=== PATIENT | female | born 1975 | race Caucasian/White ===

== ENCOUNTER 2020-05-08 11:59 | Outpatient (NON) | payer OTHER, SELFPAY ==
[2020-05-08 23:01] LABS: SARS-CoV-2 RNA PCR Negative
== END 2020-05-08 12:00 ==
PROVIDERS: PCP Family Medicine; Visit Provider Family Medicine
DX: Z20.822 Contact with and (suspected) exposure to COVID-19 (principal); R68.83 Chills (without fever)
CPT/HCPCS: C9803; U0003; U0005

== ENCOUNTER 2024-02-20 05:56 | Day surgery (SDC) | payer OTHER, SELFPAY ==
[2024-02-10 13:42] VITALS: BMI 49.8
[2024-02-20 09:45] VITALS: BP 149/73; PULSE 89; RESP 18; TEMP 36.1; O2SAT 96; BMI 51.9
--- NOTE | 2024-02-20 10:01 | P.PNAN_ITS ---
Anes - Initial Pre Proc Eval Procedure: Operation Date: 02/20/24 11:00 Proposed Procedures p Screening Colonoscopy - Celio Montez MD Date/Time: 02/20/24 10:01 Surgeon: Celio Montez MD Pre Op Diagnosis: neoplasm screening Patient Data Age: 48 Gender: F Height: 1.45 m Weight: 108.8 kg Last Vital Signs Temp 97 F L 02/20/24 09:45 Pulse 89 02/20/24 09:45 Resp 18 02/20/24 09:45 BP 149/73 H 02/20/24 09:45 Pulse Ox 96 02/20/24 09:45 O2 Del Method Room Air 02/20/24 09:45 Allergies Allergy/AdvReac Type Severity Reaction Status Date / Time morphine Allergy Unknown Unknown Verified 02/20/24 09:44 Home Medications Medication Instructions Recorded Confirmed Type clonazepam 0.5 mg tablet 0.5 mg PO DAILY PRN anxiety 06/21/22 02/20/24 History magnesium oxide 250 mg PO DAILY 06/27/23 02/20/24 History escitalopram oxalate 20 mg tablet 20 mg PO DAILY #90 tabs 07/07/23 02/20/24 Rx levothyroxine 137 mcg tablet 137 mcg PO DAILY #90 tabs 12/11/23 02/20/24 Rx rosuvastatin 20 mg tablet 20 mg PO DAILY #90 tabs 12/11/23 02/20/24 Rx trazodone 50 mg tablet 50 mg PO QHS #90 tabs 12/11/23 02/20/24 Rx losartan 50 mg tablet 50 mg PO DAILY #90 tabs 01/09/24 02/20/24 Rx Patient hx anesthesia problems: none Family hx anesthesia problems: none Results Review: All pre-operative results and documents have been reviewed as part of the pre- operative evaluation. [facility] Past Medical History Medical History Abnormal fasting glucose Generalized anxiety disorder Hyperlipidemia Hypothyroidism Morbid obesity Surgical History Surgical History History of carpal tunnel surgery 2019-Dr. Valerio History of foot surgery Dr. Hamm [address] Boogie History of mastectomy 2010-Mauryrenate History of oophorectomy Dr. Boogie Family History Family History Other Cerebrovascular accident Diabetes mellitus Family history of malignant neoplasm Hypertension Social History Social History Smoking status: Never smoker Second hand tobacco smoke exposure: No Alcohol intake: current Alcohol use details: 3x per year Substance use: never Substance use type: does not use Do You Feel Safe in your Home?: Yes Lack of Transportation: No Lack of Food: Never True Current Housing: I Have Housing Concerned About Future Housing: No Difficulty Paying Gas/Electric Bills: No Difficulty Paying for Meds: No Currently Unemployed: No Education: Trade/Vocational Certificate Difficulty w/ Childcare or Family Care: No Living arrangements: with family Occupation/Education: occupation Gender identity (if verbalized by the patient): Female Sexual Orientation (if Verbalized by the Patient): Straight or Heterosexual Spiritual care concerns: No Anes - Eval Final PreProcedure Day of Procedure 02/20/24 10:01 Patient weight: morbidly obese Heart: regular rate and rhythm Lungs: clear to auscultation Airway: Mallampati scale class II Neurological: alert and oriented Last oral intake: >/= 8 hours ASA classification: III Emergent: no Anesthetic plan: proceed Anesthesia type and monitoring: general GIVS and standard monitoring Results Review: All pre-operative results and documents have been reviewed as part of the pre- operative evaluation. HTN, hyperlipidemia, MO BMI 51. Informed Consent: The patient's anesthetic plan and its attendant risks and benefits were discussed with the patient/family/POA. Questions were solicited and answers provided to the satisfaction of the patient/family/POA.
[2024-02-20] MEDS: LACTATED RINGERS 1,000 ML 150 ML IV CONT (10:09)
--- NOTE | 2024-02-20 10:09 | PM.IMHP ---
H&P: HPI History of Present Illness Date/Time: 02/20/24 10:09 Chief Complaint: Screening colonoscopy Narrative: This is the patient's second colonoscopy, the 1st 1 was more than 10 years ago.. There are no GI symptoms and there is no family history of colorectal cancer. Review of Systems Review of Systems: All systems reviewed & are unremarkable except as noted in HPI and below PMFSH Past Medical History Medical History Abnormal fasting glucose Generalized anxiety disorder Hyperlipidemia Hypothyroidism Morbid obesity Surgical History Surgical History History of carpal tunnel surgery 2019-Dr. Valerio History of foot surgery Dr. Hamm [address] Boogie History of mastectomy 2010-Stefan History of oophorectomy Dr. Boogie Family History Family History Other Cerebrovascular accident Diabetes mellitus Family history of malignant neoplasm Hypertension Social History Social History Smoking status: Never smoker Second hand tobacco smoke exposure: No Alcohol intake: current Alcohol use details: 3x per year Substance use: never Substance use type: does not use Do You Feel Safe in your Home?: Yes Lack of Transportation: No Lack of Food: Never True Current Housing: I Have Housing Concerned About Future Housing: No Difficulty Paying Gas/Electric Bills: No Difficulty Paying for Meds: No Currently Unemployed: No Education: Trade/Vocational Certificate Difficulty w/ Childcare or Family Care: No Living arrangements: with family Occupation/Education: occupation Gender identity (if verbalized by the patient): Female Sexual Orientation (if Verbalized by the Patient): Straight or Heterosexual Spiritual care concerns: No Meds Home Medications and Allergies Home Medications Medication Instructions Recorded Confirmed Type clonazepam 0.5 mg tablet 0.5 mg PO DAILY PRN anxiety 06/21/22 02/20/24 History magnesium oxide 250 mg PO DAILY 06/27/23 02/20/24 History escitalopram oxalate 20 mg tablet 20 mg PO DAILY #90 tabs 07/07/23 02/20/24 Rx levothyroxine 137 mcg tablet 137 mcg PO DAILY #90 tabs 12/11/23 02/20/24 Rx rosuvastatin 20 mg tablet 20 mg PO DAILY #90 tabs 12/11/23 02/20/24 Rx trazodone 50 mg tablet 50 mg PO QHS #90 tabs 12/11/23 02/20/24 Rx losartan 50 mg tablet 50 mg PO DAILY #90 tabs 01/09/24 02/20/24 Rx Allergies Allergy/AdvReac Type Severity Reaction Status Date / Time morphine Allergy Unknown Unknown Verified 02/20/24 09:44 Vital Signs Vital Signs - 24 hr 02/20/24 09:45 Temperature 97 F L Pulse Rate 89 Respiratory Rate 18 Blood Pressure 149/73 H Pulse Oximetry 96 Oxygen Delivery Room Air Exam Const: General: cooperative and healthy appearing Resp: Effort & Inspection: normal respiratory effort and able to speak in complete sentences Auscultation: clear to auscultation bilaterally Cardio: Rate: regular rate Rhythm: regular rhythm GI: Inspection: normal to inspection GI Palp: No No hepatosplenomegaly present Auscultation: normal bowel sounds Rectal Exam: deferred Skin: General skin exam: normal color Psych: Appearance: grossly normal Mental Status: mental status grossly normal Assessment and Plan Assessment and plan (1) Screening for malignant neoplasm of colon: Code(s): Z12.11 - Encounter for screening for malignant neoplasm of colon Status: Acute Plan The patient is deemed a good candidate for the procedure. Consent signed. Will proceed.
[2024-02-20 10:44] VITALS: BP 123/73; PULSE 96; RESP 23; O2SAT 97
[2024-02-20 10:54] VITALS: BP 114/95; PULSE 90; RESP 21; O2SAT 97
[2024-02-20 11:04] VITALS: BP 114/95; PULSE 84; RESP 16; O2SAT 98
== END 2024-02-20 11:42 | disposition home or self-care (01) ==
PROVIDERS: PCP Family Medicine; Visit Provider Internal Medicine Gastroenterology
PROC: 0DJD8ZZ Inspection of Lower Intestinal Tract, Via Natural or Artificial Opening Endoscopic (ICD-10-PCS; CPT 45378; principal; 2024-02-20 11:00)
DX: Z12.11 Encounter for screening for malignant neoplasm of colon (principal); E78.5 Hyperlipidemia, unspecified; E03.9 Hypothyroidism, unspecified; F41.9 Anxiety disorder, unspecified; E66.01 Morbid (severe) obesity due to excess calories; Z68.43 Body mass index [BMI] 50.0-59.9, adult; Z98.890 Other specified postprocedural states; Z80.9 Family history of malignant neoplasm, unspecified; Z82.49 Family history of ischemic heart disease and other diseases of the circulatory system
CPT/HCPCS: 45378; J2003; J2704; J7120

== ENCOUNTER 2024-03-03 15:57 | Outpatient (CLI) | payer OTHER, SELFPAY ==
--- NOTE | ~2024-03-03 | CT_ITS ---
EXAMINATION: CT brain wo con DATE: 03/03/2024 16:14 INDICATION: Acquired deformity of the head TECHNIQUE: Computed tomography (CT) of the head was performed without intravenous contrast. Sagittal and coronal reconstructions were performed. The mA was adjusted according to patient size. Iterative reconstruction technique was employed. The dose-length product was 681.00 mGy-cm. COMPARISON: Brain MR dated 11/11/2007 FINDINGS: Skull appears normal and symmetric. No acute intracranial hemorrhage, acute infarction or abnormal ex tra axial fluid collection. Ventricles are normal and symmetric. No mass/mass effect. The orbits and paranasal sinuses are normal. Hypopneumatized right mastoid. IMPRESSION: 1. Normal brain. Reviewed, dictated and finalized at location A. D MASTER IMPRESSION: 1. Normal brain.
== END 2024-03-03 15:58 | disposition home or self-care (01) ==
PROVIDERS: PCP Family Medicine; Visit Provider Family Medicine
DX: M95.2 Other acquired deformity of head (principal); G44.52 New daily persistent headache (NDPH)
CPT/HCPCS: 70450

== ENCOUNTER 2024-12-29 01:47 | Day surgery (SDC) | payer OTHER, SELFPAY ==
[2024-12-17 14:01] VITALS: BMI 51.9
--- NOTE | 2024-12-17 14:09 | SUR.PREOP ---
Report to the Outpatient Waiting Room, entrance under the green pavilion located off [facility], at time 0900 on date 12/29/24. Planned Procedure Time: 1100 Time changes happen often and if your time is changed the preop area will call you the afternoon before. - You and your visitor will be asked to self-screen and do not enter if you have any COVID symptoms. Please call surgeon if you need to reschedule. - A mask is optional within the hospital at this time. Patients NPO 8 hrs prior to surgery starting at 0300am day of surgery - No food from midnight until time of surgery and no smoking, or chewing tobacco (or any form of nicotine). No chewing gum, candy or mints. - Infants may have breast milk until 4 hours before surgery, formula 6 hours prior to surgery. - Children will be allowed to drink immediately following surgery.? If applicable, please bring a bottle or sippy cup to assist with drinking. Juice, water, soda, and popsicles are readily available.? For infants on formula, please bring formula the day of surgery.? Pacifiers are allowed. Take only the following medications with a SIP of water on the morning of surgery: levothyrozine DO NOT STOP ANY OF YOUR OTHER PRESCRIPTION MEDICATIONS PRIOR TO SURGERY EXCEPT THE FOLLOWING Hold all vitamins and supplements for 3 days per anesthesiologist. Medications to discontinue per physician ___pt to hold supplements and vitamins 3 days prior Date to take last dose Please no make-up, nail belarusian, hairspray, perfume, deodorant, or body powder the day of surgery.? No jewelry (including any body piercings) or valuables the day of surgery, leave them at home.? Please take a shower or bath the night before, or the morning of, surgery with an antibacterial soap.? Wear comfortable, loose fitting clothing.? Children are encouraged to wear pajamas. - Jewelry must be removed prior to entering the operating room.? Rings and piercings that are not removed may be cut off. - The hospital will not accept responsibility for valuables.? - Please leave all valuables, including medications, at home the day of surgery. If you are going home after surgery, a licensed non emergency services ambulance driver must drive you home.? - NO public transportation without another adult if you receive anesthesia. - We recommend that an adult stay with you for 24 hours following discharge. - We also recommend that you do not drive, make important decision, drink alcoholic beverages, or take any drugs that were not prescribed by your health care provider for at least 24 hours after your discharge time. For Pediatric surgeries, we recommend two adults accompany the child home. Follow any additional instructions given to you from your surgeon. Telephone instructions given to patient and asked if any additional questions and then verbalized understanding. Patient advised to call surgeon office or pre surgery nurse liaison [phone] if any additional questions.
--- OUTSIDE RECORDS SUMMARY | 2024-12-29 01:50 | XMS_ITS | Clinical Summary ---
Author Organization [facility] Address [address] [place] [address] Care Team Providers Care Senior Geotechnical Engineer Name Role Phone Daniel Baptiste MD Primary Care Provider [phone] Allergies Active Allergy Reactions Criticality Noted Date Comments Morphine Other (see comment) Low 12/16/2021 Reaction: vomiting Medications trazodone 50 MG tablet Take 1 tablet (50 mg total) by mouth nightly at bedtime. Active escitalopram (LEXAPRO) 20 MG tablet Take 1 tablet (20 mg total) by mouth nightly at bedtime. Active clonazePAM (KLONOPIN) 0.5 MG tablet Take 1 tablet (0.5 mg total) by mouth nightly as needed for Anxiety. Active rosuvastatin (CRESTOR) 20 MG tablet Take 1 tablet (20 mg total) by mouth nightly at bedtime. Active levothyroxine (SYNTHROID) 137 MCG tablet Take 1 tablet (137 mcg total) by mouth every morning. 30 tablet 12/17/2021 Active Active Problems Problem Noted Date Diagnosed Date GERD (gastroesophageal reflux disease) 2 Chest pain 12/16/2021 Left carpal tunnel syndrome 05/20/2019 S/P carpal tunnel release 05/20/2019 Morbid obesity 02/21/2016 Epidermoid cyst 02/08/2015 Chronic pain 02/11/2013 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 Hypothyroidism, adult 09/24/2010 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 08/30/2009 Family History Medical History Relation Comments Cancer Father Heart Disease Father Cancer Mother Relation Status Comments Father Mother Social History Tobacco Use Types Packs/Day Years Used Date Smoking Tobacco: Never Smokeless Tobacco: Never Alcohol Use Standard Drinks/Week Comments No 0 (1 standard drink = 0.6 oz pur e alcohol) AUDIT-C Answer Date Recorded Frequency of Alcohol Consumption Never 10/14/2018 Average Number of Drinks Not on file 019 Frequency of Binge Drinking Not on file 10/05 Comments No Sex and Gender Information Value Date Recorded Sex Assigned at Not on file Legal Sex Female 6:39 PM CDT Gender Identity Not on file Sexual Orientation Not on file Last Filed Vital Signs Vital Sign Reading Time Taken Comments Blood Pressure 120/80 01/09/2023 9:16 AM CDT Pulse 77 01/09/2023 9:16 AM CDT Temperature 35.8 C (96.4 F) 12/17/2021 5:00 PM CDT Respiratory Rate 16 12/17/2021 5:00 PM CDT Oxygen Saturation 96% 12/17/2021 5:00 PM CDT Inhaled Oxygen Concentration - - Weight 109.3 kg (241 lb) 01/09/2023 9:16 AM CDT Height 144.8 cm (4' 9) 01/09/2023 9:16 AM CDT Body Mass Index 52.15 01/09/2023 9:16 AM CDT Plan of Treatment Health Maintenance Due Date Last Done Comments Colorectal Cancer Screening Colonoscopy (10 Years) 1973 Annual Physical 1976 Hepatitis C 1991 DTaP, Tdap and Td Vaccines ( 1 - Tdap) 1992 Hepatitis B Vaccines (1 of 3 - 19+ 3-dose series) 1992 Pneumococcal Vaccine: 50+ Years (1 of 1 - PCV) 2023 Zoster Vaccines (1 of 2) 2023 COVID-19 Vaccine (3 - 2024-2 6 season) 2024 07/07/2020, 06/18/2020 Meningococcal B Vaccine Aged Out No l onger eligible based on patient's age to complete this topic Meningococcal Vaccine Aged Out No davie kenrick eligible based on patient's age to complete this topic RSV Immunizations Under 20 Months Aged Out No longer eligible b ased on patient's age to complete this topic Goals Goal Patient Goal Type Associated Problems Recent Progress Patient-Stated? Author Safety - demonstrates understanding of home safety measures Lifestyle No Michelle Evans, RN Insurance [facility] Care Teams Senior Geotechnical Engineer Relationship Specialty Start Date End Date Daniel Baptiste MD [address] [place] [address] PCP - General FAMILY PRACTICE 10/14/18
--- OUTSIDE RECORDS SUMMARY | 2024-12-29 01:50 | XMS_ITS | Clinical Summary ---
Author Organization [facility] Address [address] [place] [address] Care Team Providers Care 3D Animator Name Role Phone Daniel Baptiste MD Primary Care Provider [phone] Daniel Baptiste MD Unavailable [phone] Allergies Active Allergy Reactions Criticality Noted Date Comments Morphine Other (See comments) Low Reaction: Medications traZODone (DESYREL) 50 mg tablet Active clonazePAM (KlonoPIN) 0.5 mg tablet TAKE 1 TABLET PRN Active escitalopram (LEXAPRO) 20 mg tablet daily. Active multivitamin tabletIndicatio ns:Vitamin Deficiency Prevention Active diclofenac DR (VOLTAREN) 75 mg EC tablet TK 1 T PO BID FOR 15 DAYS 03/06/2020 Active clobetasoL (TEMOVATE) 0.05 % external solution APPLY TO THE AFFECTED AREA OF SCALP TWICE DAILY NEEDED 04/12/[address] (PROTONIX) 20 mg EC tablet 12/17/2021 Active levothyroxine (SYNTHROID) 137 mcg tablet 12/17/2021 Active Hospital, Clinic, or Other Facility Administered Medication Ordered Dose Route Frequency Start Date End Date Status onabotulinumtoxin A (BOTOX) injection 100 UnitsIndications:Facia l weakness,Blepharospasm ,Facial spasm,Facial pain,Synkinesis,Histor y of Hernandez's palsy 100 Units IM Every 3 months 12/01/2024 11/25/2025 Act jenna Active Problems Problem Noted Date Diagnosed Date GERD (gastroesophageal reflux disease) Chest pain 12/16/2021 S/P right carpal tunnel release on 05/14/201905/08 Left carpal tunnel syndrome 05/20/2019 Vaginal bleeding 03/02/2018 Morbid obesity 02/21/2016 Epidermoid cyst 02/08/2015 Chronic pain 02/11/2013 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 Hypothyroidism, adult 09/24/2010 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 08/30/2009 Encounters Date Type Department Care Team Description 12/27/2024 3:00 PM CDT Office Visit [facility] Medicine ENT [address] [facility] [address] [place] [address] Sukhdeep Swanson MD Facial weakness (Primary Dx); Blepharospasm; Facial spasm; Facial pain; Synkinesis; 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] from Last 3 Months Immunizations Immunization Administration Dates Next Due Influenza, Quadrivalent, Luisa l Culture-based MDCK, Preservative Free, Antibiotic Free, Intramuscular 01/30/2021 Pfizer SARS-CoV-2 Monovalent Vaccination (12+ Yrs) PURPLE 06/18/2020 Surgical History Surgery Date Site/Laterality Comments ABSCESS CATHETER INJECTION 06/04/2012 N/A CT GUIDED DRAINAGE PERITONEA L OR RETROPERITONEAL FLUID COLLECTION 05/28/2012 N/A HYSTERECTOMY 04/07/2003 - 04/06/2004 OOPHERECTOMY 04/07/2000 - 04/06/2001 MASTECTOMY 04/07/2010 - 04/06/2011 Bilateral FOOT SURGERY 04/07/2010 - 04/06/2011 Left IMAGE GUIDED DRAINAGE PERITONEAL OR RETROPERITONEAL FLUID COLLECTION 03/10/2018 N/A ABSCESS CATHETER INJECTION 03/20/2018 N/A CARPAL TUNNEL RELEASE Right BREAST RECONSTRUCTION B lat flap with TM 06/28/10 & 07/19/10 Medical History Medical History Date Comments Migraine History of transfusion as a chil d Hypertension during Thyroid disease Thyroid disorder Wears glasses Wears contact lenses Anxiety GERD (gastroesophageal reflux disease) 12/17/2021 Family History Medical History Relation Name Comments Cancer Father Diabetes Father Heart disease Father Cancer Mother Relation Name Status Comments Father lung Ca Mother ovarian Ca Social History Tobacco Use Types Packs/Day Years Used Date Smoking Tobacco: Never Smokeless Tobacco: Never Tobacco Cessation:Counseling Given: Not Answered Alcohol Use Standard Drinks/Week Comments No 0 (1 standard drink = 0.6 oz pur e alcohol) Comments No Sex and Gender Information Value Date Recorded Sex Assigned at Not on file Legal Sex Female 9:28 PM SPEECH THERAPY TEACHER Gender Identity Female 12/10/2023 11:09 PM CDT Sexual Orientation Straight 12/10/2023 11 :09 PM CDT Obstetrics History Para Term AB IAB SAB Ectopic Multiple Livin g Live Births 2 2 2 2 2 Date Outcome GA Total Labor Labor/2nd/3rd Weight Sex Type Anes PTL Kindra A1 A5 Name Clin Last Filed Vital Signs Vital Sign Reading Time Taken Comments Blood Pressure 144/97 05/03/2024 4:34 PM SPEECH THERAPY TEACHER Pulse 107 05/03/2024 4:34 PM SPEECH THERAPY TEACHER Temperature 36.8 C (98.2 F) 05/03/2024 4:34 PM SPEECH THERAPY TEACHER Respiratory Rate 16 05/03/2024 4:34 PM SPEECH THERAPY TEACHER Oxygen Saturation 95% 05/03/2024 4:34 PM SPEECH THERAPY TEACHER Inhaled Oxygen Concentration - - Weight 112.6 kg (248 lb 3.2 oz) 05/03/2024 4:34 PM SPEECH THERAPY TEACHER Height 144.8 cm (4' 9.01) 05/03/2024 4:34 PM CS T Body Mass Index 53.69 05/03/2024 4:34 PM SPEECH THERAPY TEACHER Plan of Treatment Health Maintenance Due Date Last Done Comments Breast Cancer Screening-Mammogram 1973 Colon Cancer Screening-Colonoscopy 1973 Depression Screening 1973 Hepatitis C Screening 1973 DTaP/Tdap/Td Vaccine (1 - Tdap) 1984 Hepatitis B Screening 1991 Regular Well Visit/Exam 18-64 1991 Zoster Vaccine (1 of 2) 2023 Covid-19 Vaccine (2 - 2024-2 6 season) 2024 06/18/2020 Influenza Vaccine (#1) 2024 01/30/2021 Pneumococcal vaccine <65 Aged Out No longer eligible based on patient's age to complete this topic Insurance [facility] Advance Directives For more information, please contact: [phone] * Full Code (Latest Code Status on File) Date Activated Date Inactivated Comments 03/10/2018 9:07 AM 03/11/2018 2:49 AM Care Teams 3D Animator Relationship Specialty Start Date End Date Daniel Baptiste MD [address] [place] [address] PCP - General 04/28/19 Daniel Baptiste MD [address] [place] [id number] 04/28/19
--- OUTSIDE RECORDS SUMMARY | 2024-12-29 01:51 | XMS_ITS | Encounter Summary ---
Author Organization [facility] Address [address] [place] [address] Care Team Providers Care Cement Cutter Name Role Phone Daniel Baptiste MD Primary Care Provider [phone] Encounter Details Date Type Department Care Team (Late st Contact Info) Description 01/01/2024 Abstract [facility] [address] Massiel Salazar MA Social History Tobacco Use Types Packs/Day Years [...] on file Sexual Orientation Not on file documented as of this encounter Functional Status * RETIRED Are you deaf or do you have serious difficulty hearing Answer Date of Assessment Author Status No 12/16/2021 11:19 PM CDT Acti ve * RETIRED Are you blind or do you have serious difficulty seeing, even when wearing glasses? Answer Date of Assessment Author Status No 12/16/2021 11:19 PM CDT Acti ve * Do you have serious difficulty walking or climbing stairs? Answer Date of Assessment Author Status No 12/16/2021 11:19 PM CHELT Angelika Soni RN Active * Do you have difficulty dressing or bathing? Answer Date of Assessment Author Status No 12/16/2021 11:19 PM CHELT Angelika Soni RN Active * Because of a physical, mental, or emotional condition, do you have difficulty doing errands alone such as visiting a doctor's office or shopping? Answer Date of Assessment Author Status No 12/16/2021 11:19 PM CHELT Angelika Soni RN Active documented as of this encounter Mental Status * Because of a physical, mental, or emotional condition, do you have serious difficulty concentrating, remembering, or making decisions? Answer Entry Date Author Status No 12/16/2021 11:19 PM Angelika Schneider RN Active documented in this encounter Plan of Treatment Not on file documented as of this encounter Goals Goal Patient Goal Type Associated Problems Recent Progress Patient-Stated? Author Safety - demonstrates understanding of home safety measures Lifestyle No Michelle Evans RN documented as of this encounter Procedures Procedure Name Priority Date/Time Associated Diagnosis Comments COMPREHENSIVE METABOLIC PANEL Routine 06/27/2023 LIPID PANEL Routine 06/27/2023 THYROXINE, FREE (FT4) Routine 06/27/2023 THYROID STIM HORMONE TSH Routine 06/27/2023 documented in this encounter Results * COMPREHENSIVE METABOLIC PANEL (06/27/2023) SODIUM S/P/B 143 GLUCOSE 90 mg/dL AST 25 BUN 14 CREATININE S/P/B 0.74 0.5 - 1.0 CALCIUM S/P/B 9.7 POTASSIUM S/P/B 4.3 CHLORIDE S/P/B 107 ALT 27 GFR ESTIMATE 99 us Default History Genericprovider LABORATORY Final Result * LIPID PANEL (06/27/2023) Pathologist [facility] CHOLESTEROL 149 TRIGLYCERIDES 219 HDL 37 LDL (CALCULATED) 80 NON HDL CHOLESTEROL 112 us Default History Genericprovider LABORATORY Final Result * THYROXINE, FREE (FT4) (06/27/2023) Pathologist [facility] FREE T4 1.1 us Default History Genericprovider LABORATORY Final Result * THYROID STIM HORMONE TSH (06/27/2023) Pathologist [facility] TSH 0.39 us Default History Genericprovider LABORATORY Final Result documented in this encounter Visit Diagnoses Not on filedocumented in this encounter Care Teams Cement Cutter Relationship Specialty Start Date End Date Daniel Baptiste MD [address] [place] [id number] PCP - General FAMILY PRACTICE 10/14/18 documented as of this encounter
--- NOTE | 2024-12-29 06:56 | WPDHPUPDATE1 ---
History and Physical Update Update Date/Time: 12/29/24 06:56 Patient seen and examined in pre-operative holding area. No interval change in medical history or symptoms. Patient recalls previous discussion of benefits and alternatives to procedure. Continues to desire to proceed with left endoscopic possible open carpal tunnel release and left cubital tunnel release. Reviewed procedure, post-op expectations and risks including but not limited to bleeding, infection, injury to tendon/nerve/vessel, decreased hand function, stiffness, RSD, no change or worsening of symptoms. I discussed the possible use of assistants and their participation in the case. Patient stated understanding and signed the consent form wishing to proceed.
--- NOTE | 2024-12-29 06:57 | W.PM.PROC2 ---
Procedure Note - Detailed Date of Procedure 12/29/24 Pre-op Diagnosis left carpal and cubital tunnel syndrome Post-op Diagnosis Same Procedure Performed left ectr and CuTR Surgeon Shiva Zavala MD [employer] Erector tony adhikari pa-c Anesthesia MAC Description of Procedure INFORMED CONSENT: The patient was seen and examined and marked in the pre-op area.? The patient signed the consent form. PROCEDURE IN DETAIL:The patient taken back to OR on the stretcher in supine position. Time out performed with anesthesia, surgeon and staff agreeing on patient's name site and surgery to be performed SCDs were placed on the lower extremities and inflated. A tourniquet was placed on {left} upper extremity and antibiotics given IV After anesthesia administered sedation I injected {10}cc 1%lido with epi and 0.5% marcaine plain at the operative sites The?{left upper extremity}?was prepped and draped in sterile fashion the??{left upper extremity} was? exsanguinated with Esmarch bandage and tourniquet inflated to 250mmHg I made a transverse incision in the {left} volar distal wrist crease through skin and dermis with 15 blade scalpel.? Littler scissors spread down to antebrachial fascia. A small incision was made in antebrachial fascia allowing access to Carpal tunnel. I proceeded with sequential dilation staying in line with the ring finger and hugging the hook of the hamate.? I then used the synovial elevator to free any adhesions from the underside of the transverse carpal ligament. Next I was able to insert the Microaire endoscopic carpal tunnel device with direct visualization of the transverse fibers on the monitor and proceeded with complete segmental retrograde release of the ligament in its entirety.? I irrigated with normal saline and closed with 4-0 monocryl for dermis and subcuticular closure. I next proceeded with making a longitudinal incision between two heads for flexor carpi ulnaris at end of {left} cubital tunnel with 15 blade scalpel.? Littler scissors were used to spread down to FCU fascia.? An incision was made in FCU fascia and ulnar nerve identified exiting cubital tunnel.? I proceeded with complete retrograde release of the cubital tunnel including 7cm proximal for the intermuscular septum.? The nerve appeared healthy with visible vaso nervorum.? There was no subluxation on full elbow range of motion. ? I irrigated with normal saline and closure with 4-0 monocryl for dermis and subcuticular. The incisions were covered with Dermabond then 4x4s, giuliano, and a posterior elbow and volar wrist splint for patient safety, security and comfort and secured with mary jo bandages after the tourniquet was let down noting the hand was warm and well perfused.? Patient awaken from anesthesia and transferred to recovery in stable condition Complications - none EBL- 1cc Disposition - home in stable condition Tony Adhikari PA-C was essential for positioning, retraction, closure and dressing placement [facility] Billing Surgery - Charge Forward: Surgery Billing ([id number] same for tony adding )
[2024-12-29] MEDS: LACTATED RINGERS 1,000 ML 30 ML IV CONT (10:30)
--- NOTE | 2024-12-29 10:56 | WPDANESEPPF ---
Anes - Initial Pre Proc Eval Procedure: Operation Date: 12/29/24 11:30 Proposed Procedures p Left Endoscopic Carpal Tunnel Release, Possible Open, Left Cubital Tunnel Release - Shiva Zavala MD Date/Time: 12/29/24 10:56 Surgeon: Shiva Zavala MD Pre Op Diagnosis: left carpal and cubital tunnel syndrome Patient Data Age: 49 Gender: F Height: 1.45 m Weight: 108.87 kg Allergies Allergy/AdvReac Type Severity Reaction Status Date / Time morphine Allergy Unknown Unknown Verified 12/28/24 08:05 Home Medications ?Medication ?Instructions ?Recorded ?Confirmed ?Type clonazepam 0.5 mg tablet 0.5 mg PO DAILY PRN anxiety 06/21/22 12/17/24 History magnesium oxide 250 mg PO DAILY 06/27/23 12/17/24 History clobetasol 0.05 % scalp solution 1 applic topical DAILY #50 mL 11/10/24 12/17/24 Rx losartan 50 mg tablet 50 mg PO DAILY #90 tabs 11/10/24 12/17/24 Rx levothyroxine 137 mcg tablet 137 mcg PO DAILY #90 tabs 11/12/24 12/17/24 Rx escitalopram oxalate 20 mg tablet 20 mg PO DAILY #90 tabs 11/16/24 12/17/24 Rx rosuvastatin 20 mg tablet 20 mg PO DAILY #90 tabs 12/20/24 Rx trazodone 50 mg tablet 50 mg PO QHS #90 tabs 12/20/24 Rx Patient hx anesthesia problems: other (Pt states that she wakes up when she's not supposed to too early from [place]. ) Family hx anesthesia problems: none Results Review: All pre-operative results and documents have been reviewed as part of the pre-operative evaluation. [facility] Past Medical History Medical History Morbid obesity Generalized anxiety disorder Hypothyroidism Abnormal fasting glucose Hyperlipidemia Surgical History Surgical History History of foot surgery Dr. Hamm [address] Boogie History of hysterectomy Dr. Boogie History of mastectomy 2010-Stefan History of carpal tunnel surgery 2019-Dr. Valerio Family History Family History Other Cerebrovascular accident Diabetes mellitus Family history of malignant neoplasm Hypertension Social History Social History Social History: Caffeine-daily Smoking status: Never smoker Second hand tobacco smoke exposure: No Alcohol intake: current Alcohol use details: 3x per year Substance use: never Substance use type: does not use Do You Feel Safe in your Home?: Yes Lack of Transportation: No Lack of Food: Never True Current Housing: I Have Housing Concerned About Future Housing: No Difficulty Paying Gas/Electric Bills: No Difficulty Paying for Meds: No Currently Unemployed: No Education: Trade/Vocational Certificate Difficulty w/ Childcare or Family Care: No Living arrangements: with family Occupation/Education: occupation Gender identity (if verbalized by the patient): Female Sexual Orientation (if Verbalized by the Patient): Straight or Heterosexual Spiritual care concerns: No Anes - Eval Final PreProcedure Day of Procedure 12/29/24 10:56 Patient weight: super morbidly obese Lungs: normal air movement Airway: Mallampati scale class III and special considerations (R facial droop noted (prev bells palsy). ) Neurological: alert and oriented Last oral intake: >/= 8 hours ASA classification: III Emergent: no Anesthetic plan: proceed Anesthesia type and monitoring: general GIVS and standard monitoring Results Review: All pre-operative results and documents have been reviewed as part of the pre-operative evaluation. 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 Informed Consent: The patient's anesthetic plan and its attendant risks and benefits were discussed with the patient/family/POA. Questions were solicited and answers provided to the satisfaction of the patient/family/POA.
[2024-12-29 11:00] VITALS: BP 121/73; PULSE 81; RESP 18; TEMP 36.2; O2SAT 96
[2024-12-29] MEDS: ACETAMINOPHEN 500 MG TABLET 1000 MG PO (11:00)
[2024-12-29] MEDS: ceFAZolin 2 GM in SODIUM CHLORIDE 0.9% IV 50 ML 100 ML IVPB (12:14)
[2024-12-29] MEDS: LIDO 1%/EPINEPHRINE 1:100,000 20 ML VIAL 10 ML INFILTRATE (12:14)
[2024-12-29 13:09] VITALS: BP 137/70; PULSE 83; RESP 14; O2SAT 96
[2024-12-29 13:40] VITALS: BP 127/65; PULSE 75; RESP 18
[2024-12-29 14:10] VITALS: BP 133/82; PULSE 83; RESP 18
== END 2024-12-29 14:20 | disposition home or self-care (01) ==
PROVIDERS: PCP Family Medicine; Visit Provider Plastic Surgery
PROC: 01N54ZZ Release Median Nerve, Percutaneous Endoscopic Approach (ICD-10-PCS; CPT 29848; principal; 2024-12-29 11:30)
DX: G56.02 Carpal tunnel syndrome, left upper limb (principal); G56.22 Lesion of ulnar nerve, left upper limb
CPT/HCPCS: 29848; 64718; J0690; A9270; J2003; J2004; J2250; J2405; J2704; J3010; J7120